=== PATIENT | male | born 1980 | race American Indian/Alaskan Native ===

== ENCOUNTER 2017-11-11 01:06 | Emergency (ER) | payer SELFPAY ==
[2017-11-11] MEDS ORDERED: NORCO 10/325 PO ONE (03:12)
[2017-11-11] MEDS ORDERED: BOOSTRIX IM ONE (03:12)
[2017-11-11] MEDS ORDERED: XYLOCAINE 2%/ EPI 1:200,000 INFILTRATI ONE (03:12)
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
--- NOTE | 2017-11-11 04:33 | Cat Scan Report ---
FINAL REPORT EXAM: CT HEAD/BRAIN WO CON HISTORY: headache/left eyelid lac TECHNIQUE: Routine axial imaging was obtained of the brain without IV contrast. FINDINGS: The ventricular system is appropriate in size and is symmetric. There is no evidence of acute stroke or hemorrhage. There are no extra-axial fluid collections. There is localized soft tissue swelling along the right supraorbital area. There is no evidence of fracture. The sinuses are clear. The mastoid air cells are well pneumatized. IMPRESSION: Right-sided supraorbital soft tissue swelling/laceration. No evidence of skull fracture. No acute intracranial process otherwise.
--- NOTE | 2017-11-11 04:42 | Cat Scan Report ---
FINAL REPORT EXAM: CT FACIAL BONES WO CON HISTORY: headache/left eyelid lac TECHNIQUE: Routine axial imaging was obtained of the facial bones without IV contrast with sagittal and coronal reconstructions. FINDINGS: There is right supraorbital soft tissue swelling and laceration. There is no evidence of fracture of the right orbital rim or floor. There is no evidence of radiopaque foreign body. The left orbital rim and floor appear intact. The nasal bones zygomatic arches and mandible appear intact. The sinuses reveal mucosal thickening in both maxillary sinuses. The mastoid air cells are well pneumatized. IMPRESSION: Right-sided supraorbital soft tissue swelling/laceration. No evidence of facial bone fracture. Mucosal thickening in both maxillary sinuses.
[2017-11-11 05:37] VITALS: BP 120/75
== END 2017-11-11 05:00 | disposition home or self-care (01) ==
LOC: ED 01:06
DX: S01.111A Laceration without foreign body of right eyelid and periocular area, initial encounter (principal); S00.83XA Contusion of other part of head, initial encounter; F12.10 Cannabis abuse, uncomplicated; F17.200 Nicotine dependence, unspecified, uncomplicated; W22.8XXA Striking against or struck by other objects, initial encounter; Y93.89 Activity, other specified; Y92.89 Other specified places as the place of occurrence of the external cause; Y99.8 Other external cause status
CPT/HCPCS: 70450; 70486; 90471; 90715

== ENCOUNTER 2017-12-01 12:44 | Emergency (ER) | payer OTHER ==
[2017-12-01 12:49] VITALS: BP 121/83
[2017-12-01] MEDS ORDERED: TRIPLE ANTIBIOTIC TP ONE (14:09)
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
== END 2017-12-01 14:24 | disposition home or self-care (01) ==
LOC: ED 12:44
DX: Z48.01 Encounter for change or removal of surgical wound dressing (principal); S01.111D Laceration without foreign body of right eyelid and periocular area, subsequent encounter; X58.XXXD Exposure to other specified factors, subsequent encounter
CPT/HCPCS: A6250

== ENCOUNTER 2018-03-08 06:53 | Emergency (ER) | payer SELFPAY ==
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
[2018-03-08 09:52] VITALS: BP 121/72
== END 2018-03-08 08:28 | disposition home or self-care (01) ==
LOC: ED 06:53
DX: K02.9 Dental caries, unspecified (principal); F17.200 Nicotine dependence, unspecified, uncomplicated; F12.10 Cannabis abuse, uncomplicated
CPT/HCPCS: 99282